=== PATIENT | male | born 1965 | race Caucasian/White ===

== ENCOUNTER 2023-06-20 04:23 | Day surgery (SDC) | payer BC, OTHER ==
[2023-06-09 14:25] VITALS: BMI 29.0
[2023-06-20] MEDS ORDERED: PROPOFOL 20 ML ONE (07:15)
[2023-06-20] MEDS ORDERED: ONDANSETRON 4 MG/2 ML VIAL ONE (07:15)
[2023-06-20] MEDS ORDERED: MIDAZOLAM HCL 2 MG/2 ML SINGLE DOSE VIAL ONE (07:15)
[2023-06-20] MEDS ORDERED: LIDOCAINE HCL/PF 2% SDV 5ML VIAL ONE (07:15)
[2023-06-20] MEDS ORDERED: DEXAMETHASONE SOD PHOSPHATE 4 MG/1 ML VIAL ONE ×2 (07:15→07:41)
[2023-06-20] MEDS ORDERED: BUPIVACAINE HCL/PF 0.25% (2.5MG/ML) 10 ML VIAL ONE (07:22)
[2023-06-20] MEDS: ceFAZolin SODIUM 1 GM VIAL IVPB ONE (07:40)
[2023-06-20] MEDS ORDERED: ceFAZolin SODIUM 1 GM VIAL ONE (07:41)
[2023-06-20] MEDS: BUPIVACAINE HCL/PF 0.25% (2.5MG/ML) 10 ML VIAL IJ ONE (07:44)
[2023-06-20] MEDS: BACITRACIN/POLYMYXIN B SULFATE 15 GM TUBE TP ONE (08:15)
[2023-06-20] MEDS ORDERED: BACITRACIN ZINC 15 GM TUBE TOPICAL OINTMENT ONE (08:22)
[2023-06-20] MEDS ORDERED: DEXTROSE 5%-0.45% SALINE 1,000 ML IV SCH (08:30)
[2023-06-20] MEDS ORDERED: oxyCODONE HCL 5 MG TABLET PO PRN ×2 (08:30→08:37)
[2023-06-20] MEDS ORDERED: PROMETHAZINE HCL 25 MG/1 ML VIAL IVPB PRN (08:37)
[2023-06-20] MEDS ORDERED: ONDANSETRON 4 MG/2 ML VIAL IVPUSH PRN (08:37)
[2023-06-20] MEDS ORDERED: LACTATED RINGERS SOLUTION 1,000 ML IV SCH (08:45)
[2023-06-20] MEDS: ACETAMINOPHEN INJECTION 100 ML IVPB ONE (10:15)
[2023-06-20] MEDS: ACETAMINOPHEN 1000 MG/100 ML BAG IVPB ONE (10:15)
[2023-06-20] MEDS: oxyCODONE HCL 5 MG TABLET PO ONE (11:00)
[2023-06-20] MEDS ORDERED: oxyCODONE HCL 5 MG TABLET ONE (11:00)
[2023-06-20 11:09] VITALS: RESP 16
[2023-06-20 12:40] VITALS: BP 140/91; PULSE 75; TEMP 98.5
== END 2023-06-20 12:15 | disposition home or self-care (01) ==
LOC: JASU-SURG 04:23
PROVIDERS: ATTEND Urology
PROC: 0VBJ0ZZ Excision of Right Epididymis, Open Approach (ICD-10-PCS; principal; 2023-06-20 07:30)
DX: N43.41 Spermatocele of epididymis, single (principal)
CPT/HCPCS: 87070; 87075; 87205; 88304-TC; 94760; J0131